=== PATIENT | male | born 1985 | race African-American/Black ===

== ENCOUNTER 2021-04-12 09:21 | Emergency (ER) | payer OTHER ==
[~2021-04-12] VITALS: Ht 180.3 cm; Wt 86.2 kg
[2021-04-12 10:34] VITALS: BP 133/85
[2021-04-12 11:00] LABS: BASOPHILS % (AUTO) 0.6 % (0-1); EOSINOPHILS # (AUTO) 0.2 X10'3 (0-0.9); EOSINOPHILS % (AUTO) 2.2 % (0-6); HEMOGLOBIN 16.1 g/dl (14.0-17.9); LYMPHOCYTES # (AUTO) 1.6 X10'3 (1.1-4.8); LYMPHOCYTES % (AUTO) 20.8 % (21-51); MEAN CORPUSCULAR HEMOGLOBIN 30.1 PG (27.0-31.0); MEAN CORPUSCULAR HGB CONC 34.3 g/dL (33.0-36.5); MEAN CORPUSCULAR VOLUME 87.8 FL (78-98); MONOCYTES # (AUTO) 0.3 X10'3 (0-0.9); MONOCYTES % (AUTO) 3.7 % (2-12); NEUTROPHILS # (AUTO) 5.5 X10'3 (1.8-7.7); NEUTROPHILS % (AUTO) 72.7 % (42-75); PLATELET COUNT 208 X10'3 (140-440); RED BLOOD COUNT 5.35 X10'6 (4.70-6.10); RED CELL DISTRIBUTION WIDTH 13.2 % (11.5-14.5); WHITE BLOOD COUNT 7.6 X10'3 (4.5-11.0)
[2021-04-12 11:15] LABS: ALANINE AMINOTRANSFERASE 22 U/L (12-78); ALBUMIN 4.2 G/DL (3.4-5.0); ALBUMIN/GLOBULIN RATIO 1.1 (1.1-1.5); ALKALINE PHOSPHATASE 61 IU/L (46-116); ANION GAP 7 (8-16); ASPARTATE AMINO TRANSFERASE 15 U/L (10-37); BILIRUBIN,TOTAL 0.6 MG/DL (0.1-1.0); BLOOD UREA NITROGEN 14 MG/DL (7-18); BUN/CREATININE RATIO 12.7 (5.4-32.0); CALCIUM 9.2 MG/DL (8.5-10.1); CHLORIDE 102 MMOL/L (99-107); GLUCOSE 90 MG/DL (70-104); POTASSIUM 4.4 MMOL/L (3.5-5.1); SODIUM 139 MMOL/L (135-145); TOTAL CARBON DIOXIDE 29.8 MMOL/L (24-32); eGFR 76 ML/MIN
== END 2021-04-12 16:20 | disposition home or self-care (01) ==
LOC: ER 09:22
DX: R07.89 Other chest pain (principal); F17.200 Nicotine dependence, unspecified, uncomplicated; F12.90 Cannabis use, unspecified, uncomplicated; Z72.89 Other problems related to lifestyle
CPT/HCPCS: 36415; 71045; 80053; 83880; 84484; 85025; 93005; 99285

== ENCOUNTER 2021-06-12 14:04 | Emergency (ER) | payer MEDICAID ==
[~2021-06-12] VITALS: Ht 180.3 cm; Wt 81.8 kg
[2021-06-12 14:19] VITALS: BP 108/68
== END 2021-06-12 15:02 | disposition home or self-care (01) ==
LOC: ER 14:05
DX: R05 Cough (principal); Z20.822 Contact with and (suspected) exposure to COVID-19; R51.9 Headache, unspecified; R06.7 Sneezing; F12.90 Cannabis use, unspecified, uncomplicated; Z72.89 Other problems related to lifestyle; Z88.0 Allergy status to penicillin
CPT/HCPCS: 36415; 99283; U0003; U0005

== ENCOUNTER 2021-07-24 08:51 | Emergency (ER) | payer MEDICAID ==
[~2021-07-24] VITALS: Ht 180.3 cm; Wt 81.0 kg
[2021-07-24 08:58] VITALS: BP 133/85
[2021-07-24] MEDS ORDERED: CLIN300C70 PO (12:02)
[2021-07-24] MEDS ORDERED: IBUP-1984 PO (12:02)
== END 2021-07-24 12:08 | disposition home or self-care (01) ==
LOC: ER 08:51
DX: K04.7 Periapical abscess without sinus (principal); K08.89 Other specified disorders of teeth and supporting structures; F12.90 Cannabis use, unspecified, uncomplicated; Z72.89 Other problems related to lifestyle; Z88.0 Allergy status to penicillin; Z79.2 Long term (current) use of antibiotics; Z79.899 Other long term (current) drug therapy
CPT/HCPCS: 99283

== ENCOUNTER 2021-07-31 14:14 | Emergency (ER) | payer MEDICAID ==
[~2021-07-31] VITALS: Ht 180.3 cm; Wt 81.8 kg
[~2021-07-31 14:14] MED LIST: CLIN300C70 PO
[2021-07-31 14:37] VITALS: BP 144/101
[2021-07-31] MEDS ORDERED: ONDA4TAB6 PO (15:07)
[2021-07-31] MEDS ORDERED: IBUP-1984 PO (15:07)
[2021-07-31] MEDS ORDERED: HYDR-3965 PO (15:07)
== END 2021-07-31 15:14 | disposition home or self-care (01) ==
LOC: ER 14:15
DX: K08.89 Other specified disorders of teeth and supporting structures (principal); F12.90 Cannabis use, unspecified, uncomplicated; Z88.0 Allergy status to penicillin; Z79.2 Long term (current) use of antibiotics; Z79.899 Other long term (current) drug therapy; Z72.89 Other problems related to lifestyle
CPT/HCPCS: 99283

== ENCOUNTER 2022-03-01 19:50 | Emergency (ER) | payer MEDICAID ==
[~2022-03-01] VITALS: Ht 180.3 cm; Wt 77.0 kg
[~2022-03-01 19:50] MED LIST changes: -CLIN300C70 PO; +ONDA4TAB6 PO
[2022-03-01 20:01] VITALS: BP 141/89
[2022-03-01] MEDS ORDERED: sulfamethoxazole/trimethoprim DS (800/160mg) tablet PO ONE (21:55)
[2022-03-01] MEDS ORDERED: SULF1TAB49 PO (22:04)
== END 2022-03-01 22:19 | disposition home or self-care (01) ==
LOC: ER 19:51
DX: S41.112A Laceration without foreign body of left upper arm, initial encounter (principal); F12.90 Cannabis use, unspecified, uncomplicated; Z72.89 Other problems related to lifestyle; Z88.0 Allergy status to penicillin; Z79.2 Long term (current) use of antibiotics; Z79.899 Other long term (current) drug therapy; X58.XXXA Exposure to other specified factors, initial encounter; Y93.89 Activity, other specified; Y92.89 Other specified places as the place of occurrence of the external cause; Y99.8 Other external cause status
CPT/HCPCS: 99283

== ENCOUNTER 2023-05-18 11:01 | Emergency (ER) | payer MEDICAID ==
[~2023-05-18] VITALS: Ht 180.3 cm; Wt 72.7 kg
[2023-05-18 11:20] VITALS: BP 150/90; PULSE 75; RESP 17; TEMP 98; O2SAT 99
[2023-05-18] MEDS ORDERED: CLIN150C2 PO (14:18)
[2023-05-18] MEDS ORDERED: NAPR-56 PO (14:18)
== END 2023-05-18 14:21 | disposition home or self-care (01) ==
LOC: ER 11:01
DX: K04.7 Periapical abscess without sinus (principal); F12.10 Cannabis abuse, uncomplicated; Z88.0 Allergy status to penicillin; Z79.899 Other long term (current) drug therapy
CPT/HCPCS: 99283

== ENCOUNTER 2023-10-10 19:04 | Emergency (ER) | payer MEDICAID ==
[~2023-10-10] VITALS: Ht 180.3 cm; Wt 71.4 kg
[2023-10-10 19:11] VITALS: BP 153/92; PULSE 100; RESP 18; TEMP 98.8; O2SAT 99
[2023-10-10] MEDS ORDERED: DOXY-1 PO (19:54)
[2023-10-10] MEDS ORDERED: NAPR-56 PO (19:54)
== END 2023-10-10 20:01 | disposition home or self-care (01) ==
LOC: ER 19:04
DX: K04.7 Periapical abscess without sinus (principal); F12.90 Cannabis use, unspecified, uncomplicated; Z72.89 Other problems related to lifestyle; Z88.0 Allergy status to penicillin; Z79.899 Other long term (current) drug therapy
CPT/HCPCS: 99283

== ENCOUNTER 2023-11-06 13:34 | Emergency (ER) | payer MEDICAID ==
[~2023-11-06] VITALS: Ht 180.3 cm; Wt 75.0 kg
[~2023-11-06 13:34] MED LIST changes: +NAPR-56 PO
[2023-11-06 14:08] VITALS: BP 136/88; PULSE 91; O2SAT 99
[2023-11-06 14:17] LABS: BASOPHILS # (AUTO) 0.1 X10'3 (0-0.2); BASOPHILS % (AUTO) 0.7 % (0-1); EOSINOPHILS # (AUTO) 0.2 X10'3 (0-0.9); EOSINOPHILS % (AUTO) 1.9 % (0-6); HEMATOCRIT 44.6 % (42.0-52.0); HEMOGLOBIN 14.9 g/dl (14.0-17.9); LYMPHOCYTES # (AUTO) 1.7 X10'3 (1.1-4.8); LYMPHOCYTES % (AUTO) 18.3 % (21-51); MEAN CORPUSCULAR HEMOGLOBIN 29.5 PG (27.0-31.0); MEAN CORPUSCULAR HGB CONC 33.4 g/dL (33.0-36.5); MEAN CORPUSCULAR VOLUME 88.4 FL (78-98); MEAN PLATELET VOLUME 8.7 FL (7.4-10.4); MONOCYTES # (AUTO) 0.5 X10'3 (0-0.9); MONOCYTES % (AUTO) 4.8 % (2-12); NEUTROPHILS % (AUTO) 74.3 % (42-75); PLATELET COUNT 262 X10'3 (140-440); RED BLOOD COUNT 5.05 X10'6 (4.70-6.10); RED CELL DISTRIBUTION WIDTH 13.4 % (11.5-14.5); WHITE BLOOD COUNT 9.5 X10'3 (4.5-11.0)
[2023-11-06 14:39] LABS: ALANINE AMINOTRANSFERASE 25 U/L (12-78); ALBUMIN/GLOBULIN RATIO 1.1 (1.1-1.5); ALKALINE PHOSPHATASE 73 IU/L (46-116); ANION GAP 6 (8-16); ASPARTATE AMINO TRANSFERASE 24 U/L (10-37); BILIRUBIN,TOTAL 0.5 MG/DL (0.1-1.0); BLOOD UREA NITROGEN 14 MG/DL (7-18); BUN/CREATININE RATIO 13.9 (10.0-20.0); CALCIUM 9.1 MG/DL (8.5-10.1); CHLORIDE 102 MMOL/L (99-107); CREATININE 1.01 MG/DL (0.60-1.10); GLUCOSE 90 MG/DL (70-104); POTASSIUM 3.8 MMOL/L (3.5-5.1); SODIUM 140 MMOL/L (135-145); TOTAL PROTEIN 7.7 G/DL (6.4-8.2); eCRCL 105 ML/MIN; eGFR > 90 ML/MIN
[2023-11-06 14:46] LABS: PRO BRAIN NATRIURETIC PEPTIDE 40 PG/ML (0-125)
[2023-11-06] MEDS ORDERED: ONDA4TAB12 PO (15:16)
[2023-11-06 15:53] VITALS: RESP 18; TEMP 97.8
== END 2023-11-06 15:55 | disposition home or self-care (01) ==
LOC: ER 13:34
DX: R07.9 Chest pain, unspecified (principal); R00.2 Palpitations; F12.10 Cannabis abuse, uncomplicated; Z88.0 Allergy status to penicillin; Z79.899 Other long term (current) drug therapy
CPT/HCPCS: 36415; 71045; 80053; 83880; 84484; 85025; 93005; 99285